=== PATIENT | male | born 1950 | race Caucasian/White ===

== ENCOUNTER 2017-04-26 12:12 | Emergency (ER) | payer BC ==
[~2017-04-26] VITALS: Ht 180.3 cm; Wt 78.2 kg
[2017-04-26] VITALS (9 sets, daily range): BP systolic 121–138; BP diastolic 68–91; PULSE 80–89; TEMP 98.3–98.7
[~2017-04-26 12:12] MED LIST: NO HOME MEDICATIONS
[2017-04-26 12:41] LABS: BASO % 0.3 % (0.0-2.0); EOS % 0.3 % (0-4.0); GRAN # 4.9 (1.4-6.5); GRAN % 73.9 % (42.2-75.2); LYMPH # 1.4 (1.2-3.4); LYMPH % 20.2 % (20.0-51.0); MEAN CELL VOLUME 76 fl (80.0-100.0); MEAN CORPUSCULAR HGB CONC 29 g/dl (33.0-37.0); MEAN PLATELET VOLUME 10.1 fl (7.4-10.4); MONO # 0.3 (0.1-0.6); MONO % 4.9 % (1.7-9.3); PLATELET COUNT 400 K/mm3 (130-400); RED BLOOD COUNT 2.08 M/mm3 (4.20-5.60); REDCELL DISTRIBUTION WIDTH-CV 14.5 % (11.5-14.5)
[2017-04-26 12:46] LABS: ALBUMIN 3.9 gm/dL (3.5-5.0); BILIRUBIN,TOTAL 0.3 mg/dL (0.0-1.0); CALCIUM 8.8 mg/dL (8.4-10.2); CREATININE, serum 0.84 mg/dL (0.66-1.25); TOTAL PROTEIN 6.9 gm/dL (6.4-8.2)
[2017-04-26 12:48] LABS: HEMATOCRIT 15.7 % (42.0-52.0); HEMOGLOBIN 4.5 g/dl (13.5-18.0); MEAN CORPUSCULAR HEMOGLOBIN 22 pg (27.0-31.0)
[2017-04-26 13:16] LABS: INR 1.2 (0.8-3.0); PROTHROMBIN TIME 14.3 SECONDS (9.7-12.8)
[2017-04-26 13:18] LABS: PARTIAL THROMBOPLASTIN TIME 28.6 SECONDS (26.0-37.0)
== END 2017-04-26 16:00 | disposition short-term general hospital (02) ==
LOC: COL.ER 12:12
PROVIDERS: Emergency Medicine
DX: K92.2 Gastrointestinal hemorrhage, unspecified (principal); D64.9 Anemia, unspecified; K63.89 Other specified diseases of intestine; Z87.891 Personal history of nicotine dependence
CPT/HCPCS: J7030; P9016; Q9967